=== PATIENT | male | born 1990 | race African-American/Black ===

== ENCOUNTER 2018-01-24 19:22 | Emergency (ER) | payer MEDICAID ==
[~2018-01-24] VITALS: Ht 175.3 cm; Wt 74.8 kg
[2018-01-24 19:30] VITALS: BP_SYST 124
[2018-01-24] MEDS ORDERED: NACL 0.9% 1,000 ML IV ONE (19:52)
[2018-01-24] MEDS ORDERED: ONDANSETRON HCL 4 MG/2 ML VIAL IVP ONE (20:00)
[2018-01-24] MEDS ORDERED: MORPHINE 4 MG/ML INJ. SYRINGE IVP ONE (20:00)
[2018-01-24] MEDS ORDERED: DIPHENHYDRAMINE INJ 50 MG/ML VIAL IVP ONE (20:00)
[2018-01-24 20:12] LABS: HEMATOCRIT 43.3 % (36-54); HEMOGLOBIN 14.2 g/dL (14.0-18.0); MEAN CORPUSCULAR HEMOGLOBIN 28 pg (27-31); MEAN CORPUSCULAR HGB CONC 33 % (32-36); MEAN CORPUSCULAR VOLUME 85 fL (79.0-98.0); PLATELET COUNT (AUTO) 320 K/uL (130-430); RED BLOOD CELL COUNT(AUTO) 5.08 MIL/uL (4.2-6.2); RED CELL DISTRIBUTION WIDTH 12.6 % (9.0-15.0); WHITE BLOOD COUNT (AUTO) 12.2 K/uL (4.8-10.8)
[2018-01-24 20:27] LABS: ATYPICAL LYMPHOCYTES % 0 % (0-0); BAND % (MANUAL) 0 % (0-6); BASOPHILS % (MANUAL) 0 % (0-2); EOSINOPHILS % (MANUAL) 3 % (0-7); LYMPHOCYTES % (MANUAL) 22 % (20-46); MONOCYTES % (MANUAL) 13 % (0-11)
[2018-01-24 20:29] LABS: CALCIUM 9.3 mg/dL (8.4-11.0); CREATININE 1.01 mg/dL (0.55-1.30); POTASSIUM 3.6 mmol/L (3.5-5.1)
[2018-01-24 20:32] LABS: ALBUMIN 3.1 g/dL (3.4-4.8); TOTAL BILIRUBIN 0.3 mg/dL (0.0-1.0)
[2018-01-24] MEDS ORDERED: DOXYCYCLINE HYCLATE 100 MG CAPSULE PO ONE (21:45)
[2018-01-24] MEDS ORDERED: cefTRIAXone 250 MG in LIDOCAINE 1%, 20 ML MDV 0.9 ML IM ONE (21:45)
[2018-01-24] MEDS ORDERED: DOXYCYCLINE HYCLATE 100 MG VIAL IV ONE (21:56)
[2018-01-24] MEDS ORDERED: DOXYCYCLINE HYCLATE 100 MG CAPSULE ONE (22:17)
[2018-01-24 23:27] VITALS: BP_SYST 124
== END 2018-01-24 23:24 | disposition home or self-care (01) ==
LOC: SED 19:22
DX: N45.1 Epididymitis (principal); J45.909 Unspecified asthma, uncomplicated
CPT/HCPCS: 36415; 76870; 80053; 85007; 85027; 96372; 96374; 96375; 99285; J0696; J1200; J2001; J2270; J2405; J7030; J3490

== ENCOUNTER 2020-10-08 14:05 | Emergency (ER) | payer MEDICAID ==
[~2020-10-08] VITALS: Ht 175.3 cm; Wt 83.9 kg
[2020-10-08 14:30] VITALS: BP_SYST 138
[2020-10-08] MEDS ORDERED: KETOROLAC TROMETHAMINE 30 MG VIAL IM ONE (16:00)
[2020-10-08] MEDS ORDERED: TRAM50TA2 PO (16:02)
[2020-10-08 16:15] VITALS: BP_SYST 138
== END 2020-10-08 16:16 | disposition home or self-care (01) ==
LOC: SED 14:05
DX: L73.2 Hidradenitis suppurativa (principal); J45.909 Unspecified asthma, uncomplicated
CPT/HCPCS: 99283

== ENCOUNTER 2020-12-03 20:03 | Emergency (ER) | payer MEDICAID ==
[~2020-12-03] VITALS: Ht 172.7 cm; Wt 77.1 kg
[2020-12-03 20:03] VITALS: BP_SYST 137
[~2020-12-03 20:03] MED LIST: TRAM50TA2 PO
[2020-12-03] MEDS ORDERED: MORPHINE 2 MG/ML INJ. SYRINGE IVP ONE (21:15)
[2020-12-03] MEDS ORDERED: ONDANSETRON HCL 4 MG/2 ML VIAL ONE (21:34)
[2020-12-03] MEDS ORDERED: levETIRAcetam 1,000 MG IV BAG 100 ML IV ONE (22:45)
[2020-12-03 23:25] VITALS: BP_SYST 120
== END 2020-12-03 23:25 | disposition short-term general hospital (02) ==
LOC: SED 20:03
DX: S06.4X9A Epidural hemorrhage with loss of consciousness of unspecified duration, initial encounter (principal); R07.89 Other chest pain; Y04.0XXA Assault by unarmed brawl or fight, initial encounter; Y93.89 Activity, other specified; Y92.89 Other specified places as the place of occurrence of the external cause; Y99.8 Other external cause status
CPT/HCPCS: 70450; 71045; 76376; 93005; 96365; 96375; 99285; J1953; J2270; J2405